=== PATIENT | male | born 1995 | race Caucasian/White ===

== ENCOUNTER 2017-05-23 19:22 | Emergency (ER) | payer OTHER ==
[~2017-05-23 19:22] MED LIST: Z.0.NO CURRENT MEDS
[2017-05-23 20:01] VITALS: BP 149/85; PULSE 98; RESP 16; TEMP 99; O2SAT 100
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
[2017-05-23] MEDS ORDERED: IBUPROFEN 600 MG TAB PO ONE (21:45)
[2017-05-23] MEDS ORDERED: MECLIZINE HCL 25 MG TAB PO ONE (22:15)
== END 2017-05-23 22:13 | disposition home or self-care (01) ==
LOC: NEPD 19:22
DX: S09.90XA Unspecified injury of head, initial encounter (principal); T14.8XXA Other injury of unspecified body region, initial encounter; F17.200 Nicotine dependence, unspecified, uncomplicated; S50.312A Abrasion of left elbow, initial encounter; Y35.893A Legal intervention involving other specified means, suspect injured, initial encounter
CPT/HCPCS: 70450; 72125; 99283

== ENCOUNTER 2017-08-08 16:47 | Emergency (ER) | payer SELFPAY ==
[~2017-08-08] VITALS: Ht 177.8 cm; Wt 81.8 kg
[2017-08-08 16:50] VITALS: BP 148/93; PULSE 98; RESP 14; TEMP 98.8; O2SAT 96
[2017-08-08 16:55] VITALS: BP 130/62; PULSE 70; RESP 14; O2SAT 98
[2017-08-08 17:46] LABS: AUTOMATED NEUTROPHIL # 10.7 TH/MM3 (1.8-7.7); BASOPHIL % 0.1 % (0.0-2.0); EOSINOPHIL % 0.1 % (0.0-4.0); HEMATOCRIT 45.3 % (39.0-51.0); HEMOGLOBIN 15.4 GM/DL (13.0-17.0); LYMPH % 4.3 % (9.0-44.0); LYMPHOCYTE # 0.5 TH/MM3 (1.0-4.8); MEAN CELL VOLUME 92.8 FL (80.0-100.0); MEAN CORPUSCULAR HEMOGLOBIN 31.6 PG (27.0-34.0); MEAN PLATELET VOLUME 7.7 FL (7.0-11.0); MONO % 3.8 % (0.0-8.0); MONOCYTE # 0.4 TH/MM3 (0-0.9); NEUT % 91.7 % (16.0-70.0); PLATELET COUNT 223 TH/MM3 (150-450); RED BLOOD COUNT 4.88 MIL/MM3 (4.50-5.90); RED CELL DISTRIBUTION WIDTH 14.1 % (11.6-17.2); WHITE BLOOD COUNT 11.6 TH/MM3 (4.0-11.0)
[2017-08-08 17:52] LABS: BICARBONATE 24.1 MEQ/L (21.0-32.0); CALCIUM 9.5 MG/DL (8.5-10.1); CREATININE 1.2 MG/DL (0.60-1.30)
[2017-08-08 18:10] VITALS: BP 135/69; PULSE 71; RESP 14; O2SAT 98
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
[2017-08-08 19:15] VITALS: BP 143/72; PULSE 71; RESP 16; O2SAT 98
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
== END 2017-08-08 21:33 | disposition home or self-care (01) ==
LOC: NEPC 16:47
DX: S09.90XA Unspecified injury of head, initial encounter (principal); F12.90 Cannabis use, unspecified, uncomplicated; X58.XXXA Exposure to other specified factors, initial encounter
CPT/HCPCS: 70450; 80048; 85025